=== PATIENT | male | born 1940 | race Caucasian/White ===

== ENCOUNTER 2018-12-30 21:40 | Emergency (ER) | payer MEDICARE, BC ==
[2018-12-30] MEDS ORDERED: NS 0.9% 1000 ML** 1,000 ML IV ONE (22:11)
[2018-12-30] MEDS ORDERED: Morphine 4 MG/ML VIAL (1 ml) 4 MG/ML VIAL IV ONE (22:11)
[2018-12-30 22:25] LABS: Urine Appearance Clear; Urine Bacteria Absent (Absent); Urine Bilirubin Negative (Negative); Urine Blood Negative (Negative); Urine Color Yellow; Urine Glucose Negative (Negative); Urine Ketones 1+ (Negative); Urine Nitrite Negative (Negative); Urine Protein 1+(30 mg/dL) (Negative); Urine Red Blood Cell Absent (Absent); Urine Specific Gravity 1.013 (1.010-1.030); Urine Urobilinogen Negative (Negative); Urine White Blood Cell Trace(0-5/hpf) (Absent)
--- NOTE | 2018-12-30 22:44 | ED ---
GI/ HPI - HPI Summary HPI Summary: 78 year old male presents with abdominal pain for the past couple hours. He states that it started after eating. He states he had chips and it made it worst. He's had this 2 weeks ago. He states it resolved on its own. States this has not resolving. He admits to some nausea vomiting. admits to some urgency urinary symptoms. He denies any diarrhea. He admits to constipation. No fevers. No previous belly surgeries. Has history of high blood pressure. - History of Current Complaint Chief Complaint: EDAbdPain Time Seen by Provider: 12/30/18 22:02 Stated Complaint: RT UPPER QUADRANT PAIN PER EMS Pain Intensity: 10 - Allergy/Home Medications Allergies/Adverse Reactions: Allergies Allergy/AdvReac Type Severity Reaction Status Date / Time No Known Allergies Allergy Verified 12/30/18 22:01 PMH/Surg Hx/FS Hx/Imm Hx Endocrine/Hematology History: Denies: Hx Anticoagulant Therapy Cardiovascular History: Reports: Hx Hypertension Infectious Disease History: No Infectious Disease History: Denies: Traveled Outside the [place] in Last 30 Days - Family History Known Family History: Positive: Non-Contributory - Social History Alcohol Use: Rare Substance Use Type: Reports: None Smoking Status (MU): Never Smoked Tobacco Review of Systems Negative: Fever Negative: Chest Pain Negative: Shortness Of Breath Positive: Abdominal Pain, Nausea. Negative: Vomiting, Diarrhea All Other Systems Reviewed And Are Negative: Yes Physical Exam Triage Information Reviewed: Yes Vital Signs On Initial Exam: Initial Vitals Temp Pulse Resp BP Pulse Ox 97.7 F 62 16 175/91 96 12/30/18 21:50 12/30/18 21:50 12/30/18 21:50 12/30/18 21:50 12/30/18 21:50 Vital Signs Reviewed: Yes Appearance: Positive: Well-Appearing Skin: Positive: Warm, Dry Head/Face: Positive: Normal Head/Face Inspection Eyes: Positive: Normal, EOMI, LUIS, Conjunctiva Clear Respiratory/Lung Sounds: Positive: Clear to Auscultation, Breath Sounds Present Cardiovascular: Positive: Normal, RRR Abdomen Description: Positive: Soft, Other: - tenderness in RUQ pain Bowel Sounds: Positive: Present Musculoskeletal: Positive: Normal Neurological: Positive: Normal Psychiatric: Positive: Normal Diagnostics - Vital Signs Vital Signs Temp Pulse Resp BP Pulse Ox 12/30/18 22:27 16 12/30/18 22:01 63 95 12/30/18 22:00 64 175/91 96 12/30/18 21:59 62 90 12/30/18 21:50 97.7 F 62 16 175/91 96 - Laboratory Lab Results: Lab Results 12/30/18 Range/Units 21:55 Urine Color Yellow Urine Appearance Clear Urine pH 7.0 (5-9) Ur Specific [place] 1.013 (1.010-1.030) Urine Protein 1+(30 mg/dl) A (Negative) Urine Ketones 1+ A (Negative) Urine Blood Negative (Negative) Urine Nitrate Negative (Negative) Urine Bilirubin Negative (Negative) Urine Urobilinogen Negative (Negative) Ur Leukocyte Esterase Negative (Negative) Urine WBC (Auto) Trace(0-5/hpf) (Absent) Urine RBC (Auto) Absent (Absent) Urine Bacteria Absent (Absent) Hyaline Casts Present A (Absent) Urine Glucose Negative (Negative) Urine Ascorbic Acid * A (Negative) Result Diagrams: 12/30/18 22:48 12/30/18 22:48 Lab Statement: Any lab studies that have been ordered have been reviewed, and results considered in the medical decision making process. - Ultrasound No standard instances Ultrasound Interpretation Completed By: Radiologist Summary of Ultrasound Findings: IMPRESSION: There is gallbladder sludge but no visible calculi no abnormal gallbladder wall thickening and negative sonographic Smith's sign and therefore not specific for acute cholecystitis. Re-Evaluation - Re-Evaluation First Eval Re-Evaluation Time: 01:31 Change: Improved Comment: feeling better GIGU Course/Dx - Course Course Of Treatment: 78 year old male presents with abdominal pain for the past couple hours. He states that it started after eating. He states he had chips and it made it worst. He's had this 2 weeks ago. He states it resolved on its own. States this has not resolving. He admits to some nausea vomiting. admits to some urgency urinary symptoms. He denies any diarrhea. He admits to constipation. No fevers. No previous belly surgeries. Has history of high blood pressure. On exam tenderness in the right upper quadrant. wbc normal. urine shows no uti. gallbladder u/s shows sludge. lfts normal. will have patient follow up with surgery. patient understand and agrees with plan. - Diagnoses Differential Diagnoses - Male: Gall Bladder Disease, Gastroenteritis (Viral), Urinary Tract Infection Provider Diagnoses: Abdominal pain Discharge ED - Sign-Out/Discharge Documenting (check all that apply): Patient Departure Patient Received Moderate/Deep Sedation with Procedure: No - Discharge Plan Condition: Good Disposition: HOME Patient Education Materials: Biliary Colic (ED) Referrals: No Primary Care Phys,NOPCP [Primary Care Provider] - Additional Instructions: follow up with surgery avoid fatty foods Return to ED if develop any new or worsening symptoms - Billing Disposition and Condition Condition: GOOD Disposition: Home
[2018-12-30 22:54] LABS: ABS Lymphocytes 0.7 10^3/ul (1.0-4.8); ABS Monocytes 0.6 10^3/ul (0-0.8); Eosinophil % 0.3 %; Hematocrit 43 % (42-52); Hemoglobin 14.7 g/dL (14.0-18.0); Lymphocyte % 8.5 %; Mean Corpuscular HGB Conc 35 g/dL (31-36); Mean Corpuscular Hemoglobin 32 pg (27-31); Mean Corpuscular Volume 94 fL (80-94); Mean Platelet Volume 7.8 fL (7.4-10.4); Platelet Count 233 10^3/uL (150-450); Red Blood Count 4.56 10^6 /uL (4.18-5.48); Red Cell Distribution Width 15 % (10-15); White Blood Count 8.4 10^3/uL (3.5-10.8)
[2018-12-30 23:13] LABS: Albumin 4.4 g/dL (3.2-5.2); Albumin/Globulin Ratio 1.6 (1-3); BUN/Creatinine Ratio 10.4 (8-20); C Reactive Protein 3.3 mg/L (<8.01); Calcium 8.7 mg/dL (8.6-10.3); EGFR African American 92.1 (>60); EGFR Non-African American 76.2 (>60); Globulin 2.8 g/dL (2-4); Potassium 3.7 mmol/L (3.5-5.0); Total Bilirubin 0.8 mg/dL (0.2-1.0); Total Protein 7.2 g/dL (6.4-8.9)
[2018-12-31] MEDS: NS 0.9% 1000 ML** 1,000 ML IV ONE ×2 (00:22→01:14)
[2018-12-31 01:44] VITALS: BP 160/90
== END 2018-12-31 02:02 | disposition home or self-care (01) ==
LOC: ED 21:40
DX: R10.9 Unspecified abdominal pain (principal); I10 Essential (primary) hypertension
CPT/HCPCS: 36415; 76705; 80053; 81003; 81015; 83605; 83690; 85025; 86140; 87086; 96361; 96374; 99284; J2270

== ENCOUNTER 2019-01-01 04:12 | Inpatient (IN) | payer MEDICARE, BC ==
[2019-01-01] MEDS ORDERED: Ondansetron INJ* 2 MG/ML VIAL IV ONE (04:41)
[2019-01-01] MEDS ORDERED: Morphine 4 MG/ML VIAL (1 ml) 4 MG/ML VIAL IV ONE (04:41)
--- NOTE | 2019-01-01 04:46 | ED ---
Abdominal Pain/Male - HPI Summary HPI Summary: This patient is a 78 year old male presenting to [facility] with a chief complaint of RUQ pain. He was seen here yesterday for similar symptoms. He states he felt good when he went home yesterday where his US revealed gallbladder sludge and was able to eat a little bit after going home. The pain then returned tonight. He reports mild nausea. He rates his pain 7/10 in severity. - History of Current Complaint Chief Complaint: EDAbdPain Stated Complaint: GALLBLADDER PROBLEM PER PT Time Seen by Provider: 01/01/19 04:29 Hx Obtained From: Patient Onset/Duration: Lasting Days Pain Intensity: 7 Pain Scale Used: 0-10 Numeric Location: Discrete At: RUQ - Allergies/Home Medications Allergies/Adverse Reactions: Allergies Allergy/AdvReac Type Severity Reaction Status Date / Time No Known Allergies Allergy Verified 01/05/19 19:20 Home Medications: Home Medications Alfuzosin HCl [Alfuzosin HCl ER] 10 mg PO DAILY 01/01/19 [History Confirmed ] Aspirin 81 mg PO DAILY 01/01/19 [History Confirmed 01/01/19] Calcium Citrate TAB* [Citracal TAB*] 600 mg PO BID 01/01/19 [History Confirmed 01/01/19] Carbidopa/Levodopa [Carbidopa-Levodopa 25-100 Tab] 1 tab PO TID 01/01/19 [ History Confirmed 01/01/19] Docusate CAP* [Colace Cap*] 200 mg PO BID 01/01/19 [History Confirmed 01/01/19] Finasteride TAB* [Proscar TAB*] 5 mg PO DAILY 01/01/19 [History Confirmed ] Losartan Potassium [Cozaar] 50 mg PO DAILY 01/01/19 [History Confirmed 01/01/19] Multivitamins/Minerals TAB* [Theragran/minerals TAB*] 1 tab PO BID 01/01/19 [ History Confirmed 01/01/19] [place]-3 Fatty Acids (Nf) [Fish Oil (NF)] 1,000 mg PO BID 01/01/19 [History Confirmed 01/01/19] Omeprazole 40 mg PO DAILY 01/01/19 [History Confirmed 01/01/19] Polyethylene Glycol 3350* [Miralax*] 1 dose PO DAILY 01/01/19 [History Confirmed 01/01/19] Trospium Chloride [Trospium Chloride ER] 60 mg PO BID 01/01/19 [History Confirmed 01/01/19] hydroCHLOROthiazide [Hydrochlorothiazide] 12.5 mg PO DAILY 01/01/19 [History Confirmed 01/01/19] PMH/Surg Hx/FS Hx/Imm Hx Endocrine/Hematology History: Denies: Hx Anticoagulant Therapy Cardiovascular History: Reports: Hx Hypertension Infectious Disease History: No Infectious Disease History: Denies: Traveled Outside the [place] in Last 30 Days - Family History Known Family History: Negative: Cardiac Disease - Social History Alcohol Use: Rare Substance Use Type: Reports: None Smoking Status (MU): Never Smoked Tobacco Review of Systems Negative: Fever Positive: Abdominal Pain, Nausea All Other Systems Reviewed And Are Negative: Yes Physical Exam - Summary Physical Exam Summary: Appearance: Well-appearing, Well-nourished, lying in bed comfortably Skin: Warm, dry, no obvious rash Eyes: sclera anicteric, no conjunctival pallor ENT: mucous membranes moist, pharynx appears normal Neck: Supple, nontender Respiratory: Clear to auscultation, no signs of respiratory distress Cardiovascular: Normal S1, S2. No murmurs. Normal distal pulses in tibial and radial bilaterally. Abdomen: Soft, nontender, normal active bowel sounds present Musculoskeletal: Normal, Strength/ROM Intact Neurological: A&Ox3, awake and alert, mentation is normal, speech is fluent and appropriate Psychiatric: affect is normal, does not appear anxious or depressed Triage Information Reviewed: Yes Vital Signs On Initial Exam: Initial Vitals Temp Pulse Resp BP Pulse Ox 100.1 F 104 16 152/84 97 01/01/19 04:14 01/01/19 04:14 01/01/19 04:14 01/01/19 04:14 01/01/19 04:14 Vital Signs Reviewed: Yes Procedures - Sedation Patient Received Moderate/Deep Sedation with Procedure: No Diagnostics - Vital Signs Vital Signs Temp Pulse Resp BP Pulse Ox 01/01/19 04:14 100.1 F 104 16 152/84 97 - Laboratory Result Diagrams: 01/03/19 11:12 01/03/19 05:29 Lab Statement: Any lab studies that have been ordered have been reviewed, and results considered in the medical decision making process. Abdominal Pain Male Course/Dx - Course Course Of Treatment: This patient is a 78 year old male presenting to [facility] with a chief complaint of RUQ pain. Dr. Rodríguez, Surgery, advised to get a CT Abd/Pel. This patient will be signed out to Dr. Wolfe at shift change [address] abd/pel and disposition. - Diagnoses Provider Diagnoses: Acute cholecystitis - Provider Notifications Discussed Care Of Patient With: Olvin Rodríguez - Surgery Time Discussed With Above Provider: 06:49 - Advised to do a CT scan. Discharge ED - Sign-Out/Discharge Documenting (check all that apply): Sign-Out Patient Signing out patient TO: Abraham Wolfe - Shift change 0700 - Discharge Plan Condition: Stable Disposition: ADMITTED TO [facility] - Billing Disposition and Condition Condition: STABLE Disposition: Admitted to [facility] - Attestation Statements Document Initiated by Shorty: Yes Documenting Scribe: Ezekiel Luke Provider For Whom Shorty is Documenting (Include Credential): Nicola Ritter MD Scribe Attestation: Ezekiel Holland scribed for Nicola Ritter MD on 01/07/19 at 0422. Scribe Documentation Reviewed: Yes Provider Attestation: The documentation as recorded by the Ezekiel calloway accurately reflects the service I personally performed and the decisions made by me, Nicola Ritter MD Status of Scribe Document: Viewed
[2019-01-01 05:08] LABS: ABS Lymphocytes 0.5 10^3/ul (1.0-4.8); ABS Neutrophils 9.2 10^3/ul (1.5-7.7); Eosinophil % 0.1 %; Hematocrit 40 % (42-52); Hemoglobin 13.7 g/dL (14.0-18.0); Lymphocyte % 4.4 %; Mean Corpuscular HGB Conc 35 g/dL (31-36); Mean Corpuscular Hemoglobin 32 pg (27-31); Mean Corpuscular Volume 93 fL (80-94); Mean Platelet Volume 7.8 fL (7.4-10.4); Platelet Count 195 10^3/uL (150-450); Red Blood Count 4.24 10^6 /uL (4.18-5.48); Red Cell Distribution Width 14 % (10-15); White Blood Count 10.7 10^3/uL (3.5-10.8)
[2019-01-01 05:39] LABS: Albumin/Globulin Ratio 1.5 (1-3); BUN/Creatinine Ratio 14.9 (8-20); C Reactive Protein 154.56 mg/L (<8.01); Calcium 8.7 mg/dL (8.6-10.3); EGFR African American 86.9 (>60); EGFR Non-African American 71.8 (>60); Globulin 2.7 g/dL (2-4); Potassium 3.5 mmol/L (3.5-5.0); Total Bilirubin 1.3 mg/dL (0.2-1.0); Total Protein 6.7 g/dL (6.4-8.9)
--- NOTE | 2019-01-01 07:14 | ED ---
Progress - Progress Note Progress Note: This pt was signed out from Dr. Ritter to Dr. Goddard at shift change on 01/01/[address] abdomen/pelvis. CT abdomen/pelvis, as read by radiologist IMPRESSION: 1. Gallbladder wall thickening with pericholecystic inflammatory change concerning for acute cholecystitis in the correct clinical setting. 2. Diverticulosis. 3. Enlarged prostate. Dr. Goddard has reviewed this report. Course/Dx - Course Course Of Treatment: After CT scan returned with a diagnosis of acute cholecystitis with biliary duct dilatation, I spoke with Dr. Riojas. She still requested that I consult Dr. Rodríguez. I spoke with Dr. Rodríguez who recommended admission to the hospitalist and he would consult. - Diagnoses Provider Diagnoses: Acute cholecystitis - Provider Notifications Discussed Care Of Patient With: Lauri Carias - hospitalist Time Discussed With Above Provider: 09:26 Instructed by Provider To: Other - Discussed case with Dr. Carias, hospitalist, who will evaluate pt. Discharge ED - Sign-Out/Discharge Documenting (check all that apply): Patient Departure - [place] [facility] [place]-Out Receiving patient FROM: Nicola Ritter Patient Received Moderate/Deep Sedation with Procedure: No - Discharge Plan Condition: Stable Disposition: ADMITTED TO [facility] - Billing Disposition and Condition Condition: STABLE Disposition: Admitted to [facility] - Attestation Statements Document Initiated by Shorty: Yes Documenting Scribe: Heydi Harris Provider For Whom Shorty is Documenting (Include Credential): Nicola Goddard MD Scribrylie Attestation: I, Heydi Harris, scribed for Nicola Goddard MD on 01/01/19 at 1523. Scribe Documentation Reviewed: Yes Provider Attestation: The documentation as recorded by the Heydi calloway accurately reflects the service I personally performed and the decisions made by me, Nicola Goddard MD Status of Scribe Document: Viewed
[2019-01-01 07:50] LABS: Urine Appearance Cloudy; Urine Bacteria Absent (Absent); Urine Bilirubin Negative (Negative); Urine Blood Negative (Negative); Urine Color Amber; Urine Glucose Negative (Negative); Urine Ketones 1+ (Negative); Urine Nitrite Negative (Negative); Urine Protein 1+(30 mg/dL) (Negative); Urine Red Blood Cell Absent (Absent); Urine Specific Gravity 1.021 (1.010-1.030); Urine Urobilinogen Negative (Negative); Urine White Blood Cell Trace(0-5/hpf) (Absent)
[2019-01-01] MEDS ORDERED: Iohexol 300* (CONTRAST) 10 ML SDV IV ONE (08:30)
[2019-01-01] MEDS ORDERED: Piperacillin/Tazobac ADVAN(*) 3.375 GM in NS 0.9% 100 ML* 100 ML IVPB ONE ×2 (09:54→11:22)
[2019-01-01] MEDS ORDERED: Zosyn per Pharmacy* NOTE FOLLOW UP SCH ×2 (10:00→12:00)
[2019-01-01] MEDS ORDERED: NS 0.9% IV ONE (10:15)
[2019-01-01 10:19] LABS: Hematocrit 41 % (42-52); Hemoglobin 14.1 g/dL (14.0-18.0); Mean Corpuscular HGB Conc 35 g/dL (31-36); Mean Corpuscular Hemoglobin 32 pg (27-31); Mean Corpuscular Volume 93 fL (80-94); Mean Platelet Volume 7.8 fL (7.4-10.4); Platelet Count 192 10^3/uL (150-450); Red Blood Count 4.39 10^6 /uL (4.18-5.48); Red Cell Distribution Width 15 % (10-15); White Blood Count 14.3 10^3/uL (3.5-10.8)
[2019-01-01 10:35] LABS: Albumin 4.1 g/dL (3.2-5.2); Albumin/Globulin Ratio 1.5 (1-3); Globulin 2.8 g/dL (2-4); Total Bilirubin 1.3 mg/dL (0.2-1.0); Total Protein 6.9 g/dL (6.4-8.9)
[2019-01-01 11:07] LABS: ABS Lymphocytes 1.1 10^3/ul (1.0-4.8); ABS Monocytes 1.7 10^3/ul (0-0.8); ABS Neutrophils 11.4 10^3/ul (1.5-7.7); Lymphocyte % 7.8 %
[2019-01-01] MEDS ORDERED: Ondansetron INJ* 2 MG/ML VIAL IV PRN (11:22)
[2019-01-01] MEDS ORDERED: Morphine INJ* 2 MG/ML 1 ML SYRINGE (TWO MG - NEW SYRINGE VERSION) IV PRN (11:22)
[2019-01-01] MEDS: LEVODOPA PO SCH ×3 (11:49→22:56)
[2019-01-01] MEDS: CARBIDOPA PO SCH ×3 (11:49→22:56)
[2019-01-01] MEDS ORDERED: Carbidopa/Levodopa ODT(NF) TAB.ODT 25/100 PO ONE (12:00)
[2019-01-01 12:22] LABS: INR 1.3 (0.82-1.09)
[2019-01-01] MEDS: Acetaminophen TAB* 325 MG PO PRN ×2 (12:32→15:59)
[2019-01-01] MEDS ORDERED: Morphine INJ* 4 MG/ML 1 ML SYRINGE (NEW SYRINGE VERSION) IV PRN (13:00)
--- NOTE | 2019-01-01 13:17 | CONS ---
CONSULTATION REPORT: DATE OF CONSULT: 01/01/19 SERVICE: General Surgery. ATTENDING SURGEON: Dr. Jamee Riojas. REASON FOR CONSULTATION: Right upper quadrant abdominal pain. HISTORY OF PRESENT ILLNESS: Mr. Dodd is a very pleasant 78-year-old gentleman with a history of Parkinson's disease, who presented to the emergency room yesterday evening with complaints of right upper quadrant abdominal pain. Of note, he had been in the emergency room 1 day prior with a similar complaint of right upper quadrant abdominal pain; however, his imaging with the right upper quadrant ultrasound and his labs were all negative and he was therefore sent home after being administered morphine. He presented yesterday evening again because he said that the pain had returned and was 7/10. He has also had some nausea since his earlier presentation and he has not been able to tolerate much p.o. He also said that because he had a subjective fever at home, this is another reason why he presented back to the emergency room. The patient says that his first episode of right upper quadrant abdominal pain was several months ago and the second one was just about 2 days ago and then this is his third presentation. Prior to this, he has had no known history of cholelithiasis. PAST MEDICAL HISTORY: Hypertension, Parkinson's disease. He also had a history of overactive bladder. PAST SURGICAL HISTORY: No history of abdominal surgery. MEDICATIONS: 1. Trospium chloride 60 mg p.o. b.i.d. 2. MiraLAX 1 dose p.o. daily. 3. [place]-3 fatty acid 1000 mg p.o. b.i.d. 4. Losartan 50 mg p.o. daily. 5. Omeprazole 40 mg p.o. daily. 6. Finasteride 5 mg p.o. daily. 7. Docusate 200 mg p.o. b.i.d. 8. Hydrochlorothiazide 12.5 mg p.o. daily. 9. Alfuzosin 10 mg p.o. daily. 10. Carbidopa/levodopa 1 tab p.o. t.i.d. 11. Multivitamins. 12. Aspirin 81 mg p.o. daily. 13. Calcium citrate 600 mg p.o. b.i.d. ALLERGIES: No known drug allergies. FAMILY HISTORY: No history of cardiac disease. SOCIAL HISTORY: The patient lives in [place] with his . He is retired. He is a nonsmoker. REVIEW OF SYSTEMS: Negative except for abdominal pain, nausea, and fever. PHYSICAL EXAM: Vital Signs: Temperature is 101.6, pulse is 93, respiratory rate is 18, O2 sat is 95% O2 on room air, blood pressure is 129/76. General: Elderly well-appearing man, lying comfortably in bed, in no apparent distress, conversing pleasantly and easily. HEENT is normocephalic, atraumatic. Cardiovascular is regular rate and rhythm. Respiratory is clear to auscultation bilaterally. Abdomen is soft, tender in the right upper quadrant. No guarding. No abdominal distention. Extremities: No edema. DIAGNOSTIC STUDIES/LAB DATA: White blood cell count was 10.7, on recheck was 14.3; hemoglobin 13.7; hematocrit is 40; platelets of 195. Sodium is 134, potassium is 3.5, chloride is 99, BUN 15, creatinine is 1.01, glucose is 127. Total bilirubin is 1.3, AST is 19, ALT is 14, alkaline phosphatase is 50. C- reactive protein is 154, lipase is 17. Imaging: CT abdomen and pelvis shows no intrahepatic or extrahepatic biliary dilatation. There is mild gallbladder wall thickening. There is stranding with pericholecystic fat. The pancreas is normal without mass or ductal dilatation. Impression is gallbladder wall thickening with pericholecystic inflammatory changes concerning for acute cholecystitis, diverticulosis and enlarged prostate. Gallbladder ultrasound- shows no biliary dilatation, bile duct is 5 mm, gallbladder wall thickening. There is positive sonographic Smith's sign, small amount of pericholecystic fluid. The suspected stone noted on CT is not visualized on this submitted images. ASSESSMENT AND PLAN: Mr. Dodd is a 78-year-old gentleman with a history of Parkinson's disease, who presents with right upper quadrant abdominal pain. He has no evidence of clear cholelithiasis, but he does have some sludge, pericholecystic fluid and gallbladder wall thickening present on his right upper quadrant ultrasound and a WBC up to 14, all consistent with acute cholecystitis. However, his bilirubin remains elevated at 1.3. I have discussed with the patient that there is a possibility that he may have some element of choledocholithiasis. He will therefore be admitted, made n.p.o., placed on IV antibiotics. Tomorrow, we will trend his bilirubin to see if it is rising. If it remains stable or minimally elevated, then we will proceed to the OR tomorrow for laparoscopic, possible open cholecystectomy. I discussed the surgery and the risks, benefits and alternatives of the procedure. He understands the risks include, but are not limited to bleeding, infection, injury to nearby structures, bile duct leak, including the possibility of injury to common bile duct, intestines and so forth, acute pancreatitis post op. There is also a risk of perioperative systemic complications. He understands if his bilirubins continue to rise he may need an ERCP post operatively. He understands all these things and wishes to proceed. I have discussed this with Wisam Ramirez NP who is admitting the patient to the hospitalist service. [id number]/[facility] #: [id number] RADHA
[2019-01-01] MEDS: NS 0.9% 1000 ML** 1,000 ML IV SCH (13:25)
--- NOTE | 2019-01-01 15:37 | HP ---
CC: Dr. Toma Garcia * HISTORY AND PHYSICAL: DATE OF ADMISSION: 01/01/19 CONSULTING SURGEON: Dr. Riojas. ATTENDING PHYSICIAN WHILE IN THE HOSPITAL: Dr. Carias * (report dictated by Wisam Ramirez NP). PRIMARY CARE PROVIDER: Dr. Toma Garcia at [place], [place]. Number there is [phone], please call this number to obtain a fax number and fax the copy of this history and physical to the primary care provider. CHIEF COMPLAINT: Abdominal pain. HISTORY OF PRESENTING ILLNESS: Mr. Dodd is a 78-year-old male patient who carries a history of Parkinson's disease, hypertension, GERD, overactive bladder , BPH who comes into the ER stating that 2 weeks ago he noticed after eating a meal, cannot remember what exactly he ate, but he had discomfort in his right upper quadrant and described as a sharp, stabbing, pressure. It lasted for about 4 hours, that happened about a couple of hours after eating, with no other associated symptoms, but eventually it went away. Unfortunately 2 days ago, he was having onion rings, he ate the onion rings, about a couple of hours later, he developed severe intense pain in the right upper quadrant that was worse than before. He came into our ER, he was treated, the pain resolved, and he was discharged. Unfortunately, he had salad last night with oil, he woke up in the middle of night, last night, he felt feverish, he was having that pain that just really was not going away again. Because of this, he came back into the ER. He does feel nauseous, but he has not vomited. He did admit to having a fever and he was noting that the pain was just getting worse and worse. It is now about a 7/10 and he is able to tolerate this. He says he has been dieting and he has lost weight. There was concern because the symptoms just were not getting any better and he came into the ER. In the ER today, he was noted to be febrile, his white count was actually a little bit elevated, and CT imaging and ultrasound is concerning for acute cholecystitis. Surgery was consulted as was the hospitalist service. We were asked to evaluate for admission. He denies any active chest pain. Denies shortness of breath at this point. Because of the sepsis and acute cholecystitis, we were asked to evaluate for admission. PAST MEDICAL HISTORY: Significant for: 1. Parkinson's disease. 2. Hypertension. 3. GERD. 4. BPH. PAST SURGICAL HISTORY: 1. He has had a right total shoulder arthroplasty. 2. Parathyroid surgery. 3. Kidney stone. HOME MEDICATIONS: Include: 1. Carbidopa/levodopa 1 tablet p.o. t.i.d. 2. Calcium citrate 600 mg p.o. b.i.d. 3. Hydrochlorothiazide 12.5 mg daily. 4. [place]-3 fatty acid 1000 mg p.o. daily. 5. Alfuzosin 10 mg daily. 6. Trospium 60 mg p.o. b.i.d. 7. MiraLAX 1 dose p.o. daily. 8. Multivitamin 1 tablet daily. 9. Cozaar 50 mg daily. 10. Aspirin 81 mg daily. 11. Prilosec 40 mg daily. 12. Proscar 5 mg daily. 13. Colace 200 mg p.o. b.i.d. ALLERGIES: Include no known drug allergies. FAMILY HISTORY: His mother at the age of 90. Father has a history of lung cancer and kidney stone disease as well. SOCIAL HISTORY: He does not smoke. He does not drink. He is retired. His surrogate decision maker is his . REVIEW OF SYSTEMS: There is a documented fever. He does admit to a significant weight change as he has been dieting. He denies having any double vision. There is no ear discharge. He denied having any rhinorrhea. There is no sore throat. No thyroid enlargement. Denied having any chest pain. There is no orthopnea. There is no nocturnal dyspnea. He did admit to abdominal pain. He does admit to nausea but no vomiting. No dysuria. He does admit to urgency and frequency of urination, long-standing issues. Denies having any lightheadedness, loss of consciousness. No pruritus and no skin ulcerations. Review of 14 systems completed, all others were negative. PHYSICAL EXAMINATION GENERAL: At this time, Mr. Dodd is a 78-year-old male patient; he is sitting in the ED stretcher. He does not appear to be in any acute distress. VITAL SIGNS: Blood pressure 129/76, pulse of 93, respirations 18, O2 sat 95% on room air, temperature 101.6. HEENT: Head is atraumatic, normocephalic. Eyes: EOMs are intact. Sclerae are anicteric and not pale. Throat: Oral mucosa appears to be dry. No oropharyngeal erythema. NECK: Supple. LUNGS: Clear to auscultation bilaterally. No wheezes, rales, or rhonchi. HEART: Sounds S1, S2. He had a regular rate and rhythm. No murmurs, rubs, or gallops. ABDOMEN: Soft. There was tenderness in the right upper quadrant. Bowel sounds were present in all 4 quadrants. It is mildly distended. EXTREMITIES: Pulses were 2+ throughout. He had no peripheral edema. He is moving all 4 extremities with 5/5 strength. He does have cogwheeling. In addition to this, he also does have a resting tremor noted, in fact in the right side worse than the left. NEUROLOGICAL: He is awake, he is alert, he is oriented x3. His tongue is midline. Vasc Tech were equal. Cranial nerves II through XII were intact. He had no gross focal neurological deficits at this point. SKIN: Intact. LABORATORY DATA/DIAGNOSTIC STUDIES: Today revealed WBC initially at 10.7, it is now 14.3; hemoglobin 14.1, hematocrit of 41, platelet count 192. His sodium 134, potassium 3.5, chloride 99, bicarb 29, BUN 15, creatinine 1.01, glucose 127. Lactate 0.9, repeat 1. Total bili 1.3. CRP 154. AST 19, ALT 18, alk phos 54, albumin 4.1, lipase normal. Urine showed 1+ protein, 1+ ketones. He did have a gallbladder ultrasound obtained today, which showed no biliary dilatation, gallbladder wall thickening, pericholecystic fluid and a sonographic Smith sign. We find him to meet the sonographic criteria for acute cholecystitis. He did have a CT of the abdomen and pelvis, which revealed impression: Gallbladder wall thickening with prior cholecystic inflammatory change concerning for acute cholecystitis in the current clinical setting, diverticulosis, enlarged prostate. Old medical records were reviewed from his previous ER visits. ASSESSMENT AND PLAN: Mr. Dodd is a 78-year-old male patient coming into the emergency department today with complaints of abdominal discomfort, on evaluation found to have acute cholecystitis with sepsis. He will be admitted under inpatient status for: 1. Acute cholecystitis with sepsis. Again, the patient was evaluated by Dr. Riojas in the ER today. It is felt that she would like to trend his labs and then proceed with surgery tomorrow. For the time being, he did receive 30 cc/kg bolus, serial lactates have been checked, and Zosyn has been started. I am going to continue fluids, continue the Zosyn, monitor him closely for worsening signs of sepsis, but at this point, we will continue to monitor. He does appear to have sepsis. I do not see any evidence of organ dysfunction at this point. We will continue to follow him and he will be n.p.o. except medications and then n.p.o. after midnight. 2. Parkinson's disease. I did order sublingual carbidopa/levodopa for the patient so that we can continue this. 3. Hypertension in the setting of sepsis. I am going to hold his medication. 4. Gastroesophageal reflux disease. He is n.p.o. at this point. We will get him restarted on his PPI as soon as possible. 5. History of benign prostatic hypertrophy. We are going to hold medications in the setting of acute illness. We will restart when able. 6. DVT prophylaxis. He is high risk. I have placed him on heparin subcu. 7. Code status. Full code. 8. Fluid, electrolytes, and nutrition. He is n.p.o. after midnight. He is n.p.o. except medications and ice chips at this point. We will replace electrolytes accordingly and start him on a diet when able. TIME SPENT: Time spent on the admission was 60 minutes, greater than half of the time was spent [id number] with the patient obtaining my history and physical, other half time was spent implementing plan of care. I did discuss the plan of care with my attending, Dr. Carias. WISAM RAMIREZ NP [id number]/[facility] #: [id number] RADHA
[2019-01-01] MEDS: Heparin VIAL(*) 5000 UNITS/ML VIAL (FIVE THOUSAND) SUBCUT SCH ×2 (15:49→22:54)
[2019-01-01] MEDS: ZOSYN 3.375 GM Q8H per EXTENDED INFUSION IVPB SCH ×4 (15:51→22:56)
--- NOTE | 2019-01-01 16:02 | CONS ---
GASTROENTEROLOGY CONSULT: DATE: 01/01/19 CONSULTING PHYSICIAN: Nicola Goddard MD, in Emergency Room. REASON FOR CONSULTATION: Right upper quadrant pain and elevated white count and a change in bilirubin from 0.8 to 1.3. 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 It was transient. He has a past history of osteopenia, overactive bladder, and parkinsonism. He has been traveling, seeing friends, was planning on going to a [place] center for few days near here. Two weeks ago, he developed attack of upper abdominal pain. It resolved on its own briefly. He then had another attack 2 days ago and came to the emergency room. After a single pain shot, he seemed better and was released home. Yesterday, he was able to eat some solid food, but shortly after dinner which was a salad, he developed more severe right upper quadrant pain and returned to the emergency room. On arrival, his temperature was 100.1, blood pressure 152/84. He was markedly tender in the right upper quadrant. Ultrasound and CT scan (Radiology cocktail server not responding) are said to show a thickened gallbladder wall and some stranding and no gross abnormality of the common duct. His LFTs show normal transaminases and alkaline phosphatase. His C-reactive protein which was 3.3 has gone up to 154. He has been admitted, placed on piperacillin and prophylactic heparin in addition to his usual parkinsonism med. PAST MEDICAL HISTORY: 1. Parkinsonism. 2. Overactive bladder. 3. Osteopenia with parathyroid abnormality. MEDICATIONS AT HOME: 1. Carbidopa/levodopa. 2. Hydrochlorothiazide. 3. Polyethylene glycol p.r.n. 4. Omeprazole 40. 5. Finasteride. SOCIAL HISTORY: He currently lives in [place]. He was travelling independently , coming from the [place] when he took ill while being here. His is on her way from [place]. REVIEW OF SYSTEMS: No history of syncope, seizure, [place], heart failure, arrhythmias, TB, hemoptysis, jaundice, psoriasis, or internal bleeding. PHYSICAL EXAM: He is a pleasant older man, in no distress with somewhat flat affect. HEENT exam shows normal icterus. Mucous membranes are normal. He has no adenopathy. His lungs are clear and heart sounds are normal. He is comfortable lying flat. The abdomen has diminished bowel sounds, though some are present. The abdomen is soft, is markedly tender in the right upper quadrant and has some referred tenderness on the suprapubic and right lower quadrant area. Rectal: Deferred and not indicated. Extremities show no edema. Neurologic is nonfocal other than the inexpressive countenance. DIAGNOSTIC STUDIES/LAB DATA: Hemoglobin 13.7, hematocrit 40, MCV 93, platelets 195. White count initially 10.7 increasing to 14.3. Bilirubin 1.3, AST/ALT 19/ 18, and alkaline phosphatase 54 and albumin 4.1. IMPRESSION: Acute cholecystitis. Local spread of inflammation and/or metabolic effects from early sepsis likely explained the bilirubin rising without alteration in the other LFTs. At this time, the odds that a common duct stone is contributing to his clinical picture seem extremely low. MRCP is not indicated. [id number]/[facility] #: [id number] MTDD
[2019-01-02] MEDS: NS 0.9% 1000 ML** 1,000 ML IV SCH (01:00)
[2019-01-02] MEDS: Heparin VIAL(*) 5000 UNITS/ML VIAL (FIVE THOUSAND) SUBCUT SCH ×3 (04:12→22:36)
[2019-01-02 04:48] LABS: ABS Eosinophils 0.1 10^3/ul (0-0.6); ABS Monocytes 1.5 10^3/ul (0-0.8); ABS Neutrophils 9.7 10^3/ul (1.5-7.7); Eosinophil % 0.4 %; Hematocrit 37 % (42-52); Hemoglobin 12.8 g/dL (14.0-18.0); Mean Corpuscular HGB Conc 35 g/dL (31-36); Mean Corpuscular Hemoglobin 33 pg (27-31); Mean Corpuscular Volume 94 fL (80-94); Mean Platelet Volume 7.9 fL (7.4-10.4); Platelet Count 164 10^3/uL (150-450); Red Blood Count 3.93 10^6 /uL (4.18-5.48); Red Cell Distribution Width 15 % (10-15); White Blood Count 12.2 10^3/uL (3.5-10.8)
[2019-01-02 04:54] LABS: INR 1.33 (0.82-1.09)
[2019-01-02 05:10] LABS: Albumin 3.5 g/dL (3.2-5.2); Albumin/Globulin Ratio 1.3 (1-3); BUN/Creatinine Ratio 15.6 (8-20); Calcium 7.5 mg/dL (8.6-10.3); EGFR African American 79.6 (>60); EGFR Non-African American 65.8 (>60); Globulin 2.6 g/dL (2-4); Potassium 3.8 mmol/L (3.5-5.0); Total Bilirubin 1.9 mg/dL (0.2-1.0); Total Protein 6.1 g/dL (6.4-8.9)
[2019-01-02] MEDS ORDERED: Bisacodyl SUPP* 10 MG SUPP PR ONE (06:24)
[2019-01-02] MEDS: ZOSYN 3.375 GM Q8H per EXTENDED INFUSION IVPB SCH ×2 (07:21)
[2019-01-02] MEDS: LEVODOPA PO SCH ×3 (07:23→20:28)
[2019-01-02] MEDS: CARBIDOPA PO SCH ×3 (07:23→20:28)
--- NOTE | 2019-01-02 09:50 | PN ---
Progress Note - Progress Note Date of Service: 01/02/19 Note: Surgery Progress Note S: Patient doing well. No nausea. Still has 3-4/10 pain. O: Vital Signs - 24 hr 01/01/19 01/01/19 01/01/19 10:56 12:43 13:27 Temperature 101.6 F 102.0 F 100.4 F Pulse Rate 93 86 92 Respiratory 18 18 24 Rate Blood Pressure 129/76 108/67 116/52 (mmHg) O2 Sat by Pulse 95 93 95 Oximetry 01/01/19 01/01/19 01/01/19 13:37 16:35 16:53 Temperature 98.7 F Pulse Rate 80 Respiratory 24 17 16 Rate Blood Pressure 100/60 (mmHg) O2 Sat by Pulse 95 Oximetry 01/01/19 01/01/19 01/01/19 19:41 20:49 23:05 Temperature 97.5 F 98.0 F Pulse Rate 77 79 Respiratory 16 16 18 Rate Blood Pressure 116/57 112/64 (mmHg) O2 Sat by Pulse 96 95 Oximetry 01/02/19 01/02/19 01/02/19 03:26 07:40 08:00 Temperature 99.1 F Pulse Rate 89 Respiratory 18 18 18 Rate Blood Pressure 120/56 (mmHg) O2 Sat by Pulse 95 Oximetry 01/02/19 01/02/19 08:23 09:18 Temperature 100.4 F 99.0 F Pulse Rate 94 89 Respiratory 16 16 Rate Blood Pressure 120/64 134/80 (mmHg) O2 Sat by Pulse 94 95 Oximetry Laboratory Results - last 24 hr 01/01/19 01/01/19 01/01/19 10:12 10:12 10:12 WBC 14.3 H RBC 4.39 Hgb 14.1 Hct 41 L MCV 93 MCH 32 H MCHC 35 RDW 15 Plt Count 192 MPV 7.8 Neut % (Auto) 79.8 Lymph % (Auto) 7.8 [place] % (Auto) 12.1 Eos % (Auto) 0.0 Baso % (Auto) 0.3 Absolute Neuts (auto) 11.4 H Absolute Lymphs (auto) 1.1 Absolute Monos (auto) 1.7 H Absolute Eos (auto) 0.0 Absolute Basos (auto) 0.0 Absolute Nucleated RBC 0.0 Nucleated RBC % 0.0 INR (Anticoag Therapy) Sodium Potassium Chloride Carbon Dioxide Anion Gap BUN Creatinine Est GFR ( Amer) Est GFR (Non-Af Amer) BUN/Creatinine Ratio Glucose Lactic Acid 1.0 Calcium Total Bilirubin 1.30 H Direct Bilirubin 0.30 H Indirect Bilirubin 1.0 AST 19 ALT 18 Alkaline Phosphatase 54 Total Protein 6.9 Albumin 4.1 Globulin 2.8 Albumin/Globulin Ratio 1.5 01/01/19 01/02/19 01/02/19 12:00 04:41 04:41 WBC 12.2 H RBC 3.93 L Hgb 12.8 L Hct 37 L MCV 94 MCH 33 H MCHC 35 RDW 15 Plt Count 164 MPV 7.9 Neut % (Auto) 79.4 Lymph % (Auto) 8.0 [place] % (Auto) 12.0 Eos % (Auto) 0.4 Baso % (Auto) 0.2 Absolute Neuts (auto) 9.7 H Absolute Lymphs (auto) 1.0 Absolute Monos (auto) 1.5 H Absolute Eos (auto) 0.1 Absolute Basos (auto) 0.0 Absolute Nucleated RBC 0.0 Nucleated RBC % 0.0 INR (Anticoag Therapy) 1.30 H 1.33 H Sodium Potassium Chloride Carbon Dioxide Anion Gap BUN Creatinine Est GFR ( Amer) Est GFR (Non-Af Amer) BUN/Creatinine Ratio Glucose Lactic Acid Calcium Total Bilirubin Direct Bilirubin Indirect Bilirubin AST ALT Alkaline Phosphatase Total Protein Albumin Globulin Albumin/Globulin Ratio 01/02/19 04:41 WBC RBC Hgb Hct MCV MCH MCHC RDW Plt Count MPV Neut % (Auto) Lymph % (Auto) [place] % (Auto) Eos % (Auto) Baso % (Auto) Absolute Neuts (auto) Absolute Lymphs (auto) Absolute Monos (auto) Absolute Eos (auto) Absolute Basos (auto) Absolute Nucleated RBC Nucleated RBC % INR (Anticoag Therapy) Sodium 136 Potassium 3.8 Chloride 104 Carbon Dioxide 26 Anion Gap 6 BUN 17 Creatinine 1.09 Est GFR ( Amer) 79.6 Est GFR (Non-Af Amer) 65.8 BUN/Creatinine Ratio 15.6 Glucose 105 H Lactic Acid Calcium 7.5 L Total Bilirubin 1.90 H Direct Bilirubin Indirect Bilirubin AST 21 ALT 5 L Alkaline Phosphatase 49 Total Protein 6.1 L Albumin 3.5 Globulin 2.6 Albumin/Globulin Ratio 1.3 Intake & Output 01/01/19 01/02/1919 22:59 06:59 14:59 Intake Total 100 0 1037 Output Total 500 400 100 Balance -400 -400 937 Weight 175 lb 174 lb 13.225 oz Intake: IV Fluids 896 NS (0.9%) 896 IVPB 141 ABX - ZOSYN 141 Oral 100 0 Output: Urine 500 400 100 Other: Date of Last Bowel 01/02/19 Movement Estimated Stool Amount Large Physical exam: Abdomen- soft, tender in RUQ, no distension A/P: 78 M with acute cholecystitis and rising bilirubins. - Discussed with patient that we can proceed with laparascopic cholecystectomy today but he will have to continue to have his bilirubins trended post op to make sure they decline and no further intervention such as ERCP needs to be performed. He understands and agrees. - After surgery patient can resume a diet but should be NPO after midnight, pending his bilirubin on POD 1. - I previously discussed with him risks, benefits and alternatives of surgery and he wishes to proceed. He lives in [place]; I advised he would have to wait several days post op to be able to drive himself home
[2019-01-02] MEDS ORDERED: Propofol* 10 MG/ML 20 ML BTL ONE (10:10)
[2019-01-02] MEDS ORDERED: Lidocaine 2% PF * 5 ML VIAL ONE (10:10)
[2019-01-02] MEDS ORDERED: Dexamethasone IV* 4 MG/ML 1 ML (4 MG) ONE (10:10)
[2019-01-02] MEDS ORDERED: Ondansetron INJ* 2 MG/ML VIAL ONE (10:10)
[2019-01-02] MEDS ORDERED: Cisatracurium* 2 MG/ML MDV 5 ML ONE (10:11)
[2019-01-02] MEDS ORDERED: fentaNYL* 50 MCG/ML 2 ML VIAL (100 MCG VIAL) ONE ×2 (10:11→12:07)
[2019-01-02] MEDS ORDERED: Midazolam* 1 MG/ML 5 ML VIAL (5 MG) ONE (10:11)
[2019-01-02] MEDS ORDERED: Bupivacaine 0.25% SDV PF* 10 ML VIAL INJ ONE (10:13)
[2019-01-02] MEDS ORDERED: EPHEDrine (Pressors)* 50 MG/ML VIAL ONE (11:00)
[2019-01-02] MEDS ORDERED: Ondansetron INJ* 2 MG/ML VIAL IV PRN (11:37)
[2019-01-02] MEDS ORDERED: Naloxone* 0.4 MG/ML 1 ML VIAL IV PRN (11:37)
[2019-01-02] MEDS ORDERED: fentaNYL* 50 MCG/ML 2 ML VIAL (100 MCG VIAL) IV PRN (11:37)
[2019-01-02] MEDS ORDERED: Glycopyrrolate IV* 0.2 MG/ML 1 ML VIAL ONE (12:17)
[2019-01-02] MEDS ORDERED: Neostigmine Methylsulfate* 1 MG/ML 10 ML VIAL (1 mg/ml) ONE (12:17)
--- NOTE | 2019-01-02 13:10 | BRIEFOPN ---
Brief Operative/Procedure Note - Operation Details Pre-Op Diagnosis: acute cholecystitis Post-Op Diagnosis: acute cholecystitis Procedures: laparoscopic cholecystectomy Surgeon(s)/Proceduralists: Jamee Riojas Anesthesia: GETA Estimated Blood Loss: less than 10 cc Findings: inflamed, thick walled, distended gallbladder with fibrinous exudate Specimen(s)/Culture(s) Description: gallbladder Complications: none
[2019-01-02] MEDS: Lactated Ringers 1000 ML Bag* 1,000 ML IV SCH (14:00)
[2019-01-02] MEDS ORDERED: oxyCODONE/Acetamin 5/325 MG* TAB PO PRN (14:54)
--- NOTE | 2019-01-02 15:11 | OP ---
DATE OF OPERATION: 01/02/19 - ROOM #336 DATE OF : 44 SERVICE: General Surgery. ATTENDING SURGEON: Jamee Riojas MD [employer] DRIVER: Chris Suh MD ANESTHESIOLOGIST: Hema Vann MD ANESTHESIA: General endotracheal anesthesia. PRE-OP DIAGNOSIS: Acute cholecystitis. POST-OP DIAGNOSIS: Acute cholecystitis. OPERATIVE PROCEDURE: Laparoscopic cholecystectomy. ESTIMATED BLOOD LOSS: Minimal, less than 10 cc. SPECIMEN: Gallbladder. INDICATIONS FOR SURGERY: Mr. Dodd is a very pleasant 78-year-old gentleman with a history of Parkinson's disease, who lives in [place], but was passing through [place] when he developed right upper quadrant abdominal pain on prior to surgery. His labs and ultrasounds were normal and he was discharged home from the emergency room. However, he presented again on late Thursday night with complaints of recurrent pain and was found on CT scan and ultrasound to have gallbladder wall thickening, pericholecystic fluid and what appeared to be gallbladder sludge. His white count alex from 10 to 14 and his bilirubin was elevated at 1.3 and alex to 1.9. Given that he was febrile, had right upper quadrant pain and evidence of acute cholecystitis on imaging, he gave informed consent for laparoscopic cholecystectomy. He understood that the risks included, but were not limited to bleeding, infection, and injury to nearby structures including the common bile duct, the intestines and other nearby structures. He understood the alternatives and benefits as well and wished to proceed. The patient also understood that his bilirubin would need to be trended after surgery. If it continued to trend upwards, he may require intervention with an ERCP for evaluation of the common bile duct. He understood this, the benefits and alternatives of surgery and wished to proceed. DESCRIPTION OF PROCEDURE: The patient was brought back to the operating room and placed on the operating table in the supine position. Sequential compression devices were placed on the bilateral lower extremities for DVT prophylaxis. Antibiotics with Zosyn were administered. The patient's left arm was tucked. He underwent general endotracheal anesthesia and his abdomen was prepped and draped in normal sterile fashion. Prior to beginning the surgery, a time-out was performed verifying the patient's name, date of , and the procedure to be performed. Next, 0.25% Marcaine was infiltrated into the left upper quadrant at Sotelo's point. A small incision was made and the Veress needle was advanced into the abdominal cavity. The saline drop test was performed which was positive, therefore, insufflation was attached and obtained to 15 mmHg. Once this was done, a small 5- mm incision was made just above the umbilicus and the abdomen was entered using direct visualization with the Optiview technique. Once the abdomen was entered, the laparoscope was used to inspect the abdominal cavity cavity and in the left upper quadrant, the Veress needle was visualized. There was no apparent injury that had been made upon entry with the Veress needle; therefore, it was removed. Next, under direct visualization and after administrating 0.25% Marcaine, the remaining 3 trocars were placed. A 12-mm trocar was placed right of the falciform and an additional 5-mm trocar was placed in the right mid abdomen, another was placed in the right lateral abdomen. Next, the gallbladder was noted to be in the right upper quadrant. There was some omentum attached to it and some fibrinous exudate also surrounding it. It was clearly an edematous and inflamed gallbladder. It was very distended and difficult to grasp; therefore, an aspirating needle was placed through the gallbladder and about 10 cc of bilious fluid was aspirated to allow the gallbladder to be more easily grasped. Once this was done, the fundus of the gallbladder was grasped and elevated over the liver bed. The infundibulum was also grasped and some of the peritoneum and the omentum that was attached to this was dissected away using blunt dissection as well as electrocautery. The peritoneum on either side of the gallbladder wall was divided. With great care, the cystic duct and cystic artery both were skeletonized and the critical view was obtained. There was also what appeared to be a small posterior vessel behind the cystic artery. The liver was clearly visualized between all of the structures. Therefore, once this view was obtained, the cystic duct was clipped proximally twice and once distally. The cystic artery was clipped in a similar fashion and the posterior vessel was also clipped proximally twice and once distally. After this was done, all these structures were divided and the gallbladder was taken off the liver bed using electrocautery. It was placed into an Endo Catch bag and removed from the abdomen as a specimen. The right upper quadrant was irrigated and suctioned until the irrigation was clear and then careful attention to the liver bed showed that there were small areas of punctate bleeding, this was cauterized and at the end of the case hemostasis was satisfactorily obtained. The clips were visualized and remained on the cystic duct and cystic artery as well as the additional posterior vessel. The 12-mm trocar site was closed using a 0 Vicryl on a suture passer under direct visualization. A final inspection of the abdominal cavity showed that hemostasis had been obtained and then desufflation was then obtained after removing all the trocars under direct visualization. After this was done, all the skin was closed using interrupted 4- 0 Monocryl sutures. Sterile dressing was then placed. The patient's anesthesia was reversed and he was taken to the PACU in stable condition. At the end of the case, all counts were correct and I was present during the entirety of the case. [id number]/[facility] #: [id number] RADHA
[2019-01-02 17:38] LABS: Urine Appearance Clear; Urine Bacteria Absent (Absent); Urine Bilirubin Negative (Negative); Urine Blood 1+ (Negative); Urine Color Yellow; Urine Glucose Negative (Negative); Urine Ketones 1+ (Negative); Urine Nitrite Negative (Negative); Urine Protein Negative (Negative); Urine Red Blood Cell Trace(0-2/hpf) (Absent); Urine Urobilinogen Negative (Negative); Urine White Blood Cell Trace(0-5/hpf) (Absent)
--- NOTE | 2019-01-02 17:43 | PN ---
Subjective Date of Service: 01/02/19 Interval History: Patient went for laparoscopic cholecystectomy earlier today. He has some residual pain in RUQ. His nausea has resolved; he is taking PO liquids. He has very frequent urination, bladder scan showed 350cc. He normally takes Alfuzosin, Proscar, and trospium for BPH and bladder irritability. Family History: Unchanged from Admission Social History: Unchanged from Admission Past Medical History: Unchanged from Admission Objective Active Medications: Acetaminophen (Tylenol Tab*) 650 mg PO Q4H PRN PRN Reason: PAIN - MILD Last Admin: 01/01/19 15:59 Dose: 650 mg Alfuzosin HCl (Uroxatral (Nf)) 10 mg PO DAILY [facility] Carbidopa/Levodopa (Carbidopa/Levodopa Odt (Nf)) 1 tab PO TID [facility] Last Admin: 01/02/19 14:28 Dose: 1 tab Docusate Sodium (Colace Cap*) 200 mg PO BID [facility] Finasteride (Proscar Tab*) 5 mg PO DAILY [facility] Heparin Sodium (Porcine) (Heparin Vial(*)) 5,000 units SUBCUT Q8HR [facility] Last Admin: 01/02/19 14:26 Dose: 5,000 units Lactated Ringer's (Lactated Ringers 1000 Ml Bag*) 1,000 mls @ 75 mls/hr IV .PER RATE [facility] Last Admin: 01/02/19 14:00 Dose: 75 mls/hr Losartan Potassium (Cozaar Tab*) 50 mg PO DAILY [facility] Morphine Sulfate (Morphine Inj (Syringe)*) 4 mg IV Q4H PRN PRN Reason: PAIN - SEVERE Nf:(Trospium Chloride [Trospium Chloride Er] 60 Mg) 60 mg PO BID [facility] Ondansetron HCl (Zofran Inj*) 4 mg IV Q6H PRN PRN Reason: NAUSEA Oxycodone/Acetaminophen (Percocet 5/325 Tab*) 1 tab PO Q6H PRN PRN Reason: PAIN - MODERATE Pantoprazole Sodium (Protonix Tab*) 40 mg PO DAILY [facility] Polyethylene Glycol/Electrolytes (Miralax*) 17 gm PO DAILY [facility] Vital Signs - 8 hr 01/02/19 01/02/19 01/02/19 12:39 12:40 12:41 Temperature 36.1 C Pulse Rate 84 85 83 Respiratory 18 6 Rate Blood Pressure 143/66 141/74 (mmHg) O2 Sat by Pulse 95 94 95 Oximetry 01/02/19 01/02/19 01/02/19 12:45 12:50 12:55 Temperature Pulse Rate 84 83 84 Respiratory 22 19 23 Rate Blood Pressure 144/80 146/76 151/75 (mmHg) O2 Sat by Pulse 95 96 95 Oximetry 01/02/19 16:00 Temperature 37.0 C Pulse Rate 77 Respiratory 18 Rate Blood Pressure 150/82 (mmHg) O2 Sat by Pulse 96 Oximetry Oxygen Devices in Use Now: Nasal Cannula Appearance: alert, no distress Ears/Nose/Mouth/Throat: NL Teeth, Lips, Gums, Clear Oropharnyx Neck: NL Appearance and Movements; NL JVP Respiratory: Symmetrical Chest Expansion and Respiratory Effort, Clear to Auscultation Cardiovascular: NL Sounds; No Murmurs; No JVD, RRR, - - 1/6 systolic murmur Abdominal: - - distended, soft, RUQ tender, +BS Lymphatic: No Cervical Adenopathy Extremities: No Edema Neurological: Alert and Oriented x 3, - - RT hand tremor Lines/Tubes/Other Access: Clean, Dry and Intact Peripheral IV Nutrition: Taking PO's Result Diagrams: 01/02/19 04:41 01/02/19 04:41 Additional Lab and Data: Laboratory Tests 01/01/19 01/01/19 01/02/19 10:12 10:12 04:41 Glucose 105 H Lactic Acid 1.0 Total Bilirubin 1.30 H 1.90 H Microbiology and Other Data: Microbiology 01/01/19 06:15 Urine Culture - Final Urine No Growth (<1,000 CFU/mL) 01/01/19 05:01 Aerobic Blood Culture - Preliminary Blood Venous No Growth Day 1 Anaerobic Blood Culture - Preliminary No Growth Day 1 01/01/19 04:52 Aerobic Blood Culture - Preliminary Blood Venous No Growth Day 1 Anaerobic Blood Culture - Preliminary No Growth Day 1 Assess/Plan/Problems-Billing Assessment: 78 year old with Parkinsons, HTN, BPH, here with acute cholecystitis, s/p lap yolis. - Patient Problems (1) Cholecystitis without calculus Current Visit: Yes Status: Acute Priority: High Code(s): K81.9 - CHOLECYSTITIS, UNSPECIFIED SNOMED Code(s): 90562288 Comment: -Surgery appears successful without complications -Bilirubin alex, will recheck tomorrow -Dr Rodríguez's consult appreciated. (2) Hypertension Current Visit: Yes Status: Chronic Priority: Low Code(s): I10 - ESSENTIAL (PRIMARY) HYPERTENSION SNOMED Code(s): 79647752 Comment: -BP elevated, will restart losartan (3) BPH (benign prostatic hyperplasia) Current Visit: Yes Status: Chronic Priority: Medium Code(s): N40.0 - BENIGN PROSTATIC HYPERPLASIA WITHOUT LOWER URINRY TRACT SYMP SNOMED Code(s): 419772610 Comment: -Will restart proscar, Alfuzosin, and trospium -Will try to avoid need for straight cath, page (4) Parkinson disease Current Visit: Yes Status: Chronic Priority: Medium Code(s): G20 - PARKINSON'S DISEASE SNOMED Code(s): 12843498 Comment: -Restarting outpatient Sinemet dose. Status and Disposition: inpatient, hospitalists will follow
[2019-01-02] MEDS: PTO:Alfuzosin ER (NF) 10 MG TAB.ER PO SCH (18:22)
[2019-01-02] MEDS: Losartan TAB* 25 MG PO SCH (18:22)
[2019-01-02] MEDS: Docusate CAP* 100 MG PO SCH (20:28)
[2019-01-02] MEDS: TROSPIUM CHLORIDE 60 MG PO SCH (20:37)
[2019-01-02] MEDS ORDERED: Carbidopa/Levodop 25/100 MG TAB(*) PO SCH (21:00)
[2019-01-03] MEDS: Lactated Ringers 1000 ML Bag* 1,000 ML IV SCH (02:40)
[2019-01-03] MEDS: Heparin VIAL(*) 5000 UNITS/ML VIAL (FIVE THOUSAND) SUBCUT SCH (05:45)
[2019-01-03 05:53] LABS: ABS Lymphocytes 0.7 10^3/ul (1.0-4.8); ABS Monocytes 1.1 10^3/ul (0-0.8); ABS Neutrophils 9.1 10^3/ul (1.5-7.7); Hematocrit 35 % (42-52); Hemoglobin 12.2 g/dL (14.0-18.0); Lymphocyte % 6.6 %; Mean Corpuscular HGB Conc 35 g/dL (31-36); Mean Corpuscular Hemoglobin 33 pg (27-31); Mean Corpuscular Volume 94 fL (80-94); Nucleated Red Blood Cells % 0.1; Red Blood Count 3.75 10^6 /uL (4.18-5.48); Red Cell Distribution Width 15 % (10-15); White Blood Count 10.9 10^3/uL (3.5-10.8)
[2019-01-03 05:55] LABS: Albumin 3.3 g/dL (3.2-5.2); Calcium 7.6 mg/dL (8.6-10.3); Potassium 3.8 mmol/L (3.5-5.0); Total Bilirubin 0.9 mg/dL (0.2-1.0)
[2019-01-03 06:01] LABS: Albumin/Globulin Ratio 1.3 (1-3); BUN/Creatinine Ratio 14.6 (8-20); EGFR African American 92.1 (>60); EGFR Non-African American 76.2 (>60); Globulin 2.6 g/dL (2-4); Total Protein 5.9 g/dL (6.4-8.9)
[2019-01-03 08:07] LABS: Platelet Count Platelets clumped. 10^3/uL (150-450)
[2019-01-03] MEDS ORDERED: Finasteride TAB* 5 MG PO SCH (09:00)
[2019-01-03] MEDS ORDERED: Polyethylene Glycol 3350* 17 GM PACKET PO SCH (09:00)
[2019-01-03] MEDS ORDERED: Pantoprazole TAB * 40 MG TAB PO SCH (09:00)
[2019-01-03] MEDS: PTO:Alfuzosin ER (NF) 10 MG TAB.ER PO SCH (09:21)
[2019-01-03] MEDS: CARBIDOPA PO SCH (09:21)
[2019-01-03] MEDS: LEVODOPA PO SCH (09:21)
[2019-01-03] MEDS: Docusate CAP* 100 MG PO SCH (09:21)
[2019-01-03] MEDS: Losartan TAB* 25 MG PO SCH (09:21)
[2019-01-03] MEDS: TROSPIUM CHLORIDE 60 MG PO SCH (09:22)
--- NOTE | 2019-01-03 10:25 | PN ---
Progress Note - Progress Note Date of Service: 01/03/19 Note: Surgery Progress Note S: Patient feels better today. He has some pain when he moves. He is tolerating a diet without nausea or emesis. He has not needed pain medications. O: Vital Signs - 24 hr 01/02/19 01/02/19 01/02/19 12:39 12:40 12:41 Temperature 97.0 F Pulse Rate 84 85 83 Respiratory 18 6 Rate Blood Pressure 143/66 141/74 (mmHg) O2 Sat by Pulse 95 94 95 Oximetry 01/02/19 01/02/19 01/02/19 12:45 12:50 12:55 Temperature Pulse Rate 84 83 84 Respiratory 22 19 23 Rate Blood Pressure 144/80 146/76 151/75 (mmHg) O2 Sat by Pulse 95 96 95 Oximetry 01/02/19 01/02/19 01/02/19 13:00 13:01 13:15 Temperature Pulse Rate Respiratory 24 29 20 Rate Blood Pressure 156/76 146/81 (mmHg) O2 Sat by Pulse Oximetry 01/02/19 01/02/19 01/02/19 13:31 14:08 15:13 Temperature 98.7 F 96.2 F Pulse Rate 83 73 Respiratory 30 18 16 Rate Blood Pressure 167/87 152/82 152/82 (mmHg) O2 Sat by Pulse 93 96 Oximetry 01/02/19 01/02/19 01/02/19 16:00 18:25 19:54 Temperature 98.6 F 99.6 F Pulse Rate 77 84 Respiratory 18 16 Rate Blood Pressure 150/82 154/82 (mmHg) O2 Sat by Pulse 96 95 95 Oximetry 01/02/19 01/02/19 01/03/19 20:00 20:30 01:10 Temperature 100.4 F 99.4 F Pulse Rate 85 84 Respiratory 16 16 16 Rate Blood Pressure 122/82 138/76 (mmHg) O2 Sat by Pulse 94 94 Oximetry 01/03/19 01/03/19 01/03/19 04:26 07:49 08:04 Temperature 99.4 F 99.5 F Pulse Rate 84 93 Respiratory 16 16 17 Rate Blood Pressure 132/80 140/81 (mmHg) O2 Sat by Pulse 94 94 Oximetry Laboratory Results - last 24 hr 01/02/19 01/03/19 01/03/19 17:15 05:29 05:29 WBC 10.9 H RBC 3.75 L Hgb 12.2 L Hct 35 L MCV 94 MCH 33 H MCHC 35 RDW 15 Plt Count Platelets clumped. H MPV Not Reportable Neut % (Auto) 83.1 Lymph % (Auto) 6.6 [place] % (Auto) 10.1 Eos % (Auto) 0.0 Baso % (Auto) 0.2 Absolute Neuts (auto) 9.1 H Absolute Lymphs (auto) 0.7 L Absolute Monos (auto) 1.1 H Absolute Eos (auto) 0.0 Absolute Basos (auto) 0.0 Absolute Nucleated RBC 0.0 Nucleated RBC % 0.1 Sodium 136 Potassium 3.8 Chloride 105 Carbon Dioxide 23 Anion Gap 8 BUN 14 Creatinine 0.96 Est GFR ( Amer) 92.1 Est GFR (Non-Af Amer) 76.2 BUN/Creatinine Ratio 14.6 Glucose 121 H Calcium 7.6 L Total Bilirubin 0.90 AST 41 H ALT 10 Alkaline Phosphatase 52 Total Protein 5.9 L Albumin 3.3 Globulin 2.6 Albumin/Globulin Ratio 1.3 Urine Color Yellow Urine Appearance Clear Urine pH 6.0 Ur Specific [place] 1.010 Urine Protein Negative Urine Ketones 1+ A Urine Blood 1+ A Urine Nitrate Negative Urine Bilirubin Negative Urine Urobilinogen Negative Ur Leukocyte Esterase Negative Urine WBC (Auto) Trace(0-5/hpf) Urine RBC (Auto) Trace(0-2/hpf) Urine Bacteria Absent Urine Glucose Negative Intake & Output 01/02/19 01/03/19 01/03/19 22:59 06:59 14:59 Intake Total 575 1410 492 Output Total 875 350 400 Balance -300 1060 92 Intake: IV Fluids 1050 492 LR 1050 492 Oral 575 360 Output: Urine 875 350 400 Physical exam: Abdomen- soft, minimally tender around epigastric incision, minimally distended. Incisions c/d/i A/P: 78 M with acute cholecystitis, POD 1 from laparoscopic cholecystectomy, doing well. - Bilirubin normalized today, WBC downtrending and patient is afebrile - DC today. Discussed plan with patient, as he is from [place]. He plans to stay in area for a few days with friends or at a hotel until he can drive home. He will follow up with PCP in [place] in 2 weeks. Percocet rx to be sent to [facility]. Patient understands he cannot drive if he is taking narcotics. Return precautions discussed with patient.
[2019-01-03 11:32] LABS: Mean Platelet Volume 7.9 fL (7.4-10.4); Platelet Count 194 10^3/uL (150-450)
[2019-01-03 11:47] VITALS: BP 130/76
--- NOTE | 2019-01-03 11:51 | PN ---
Progress Note - Progress Note Date of Service: 01/02/19 SOAP: Subjective: Patient comfortable, reports minimal post operative pain, feels a little bloated. - flatus[] Objective: ABD: soft, N/D, Incisional tendernes incisions C/D/I, no eccymosis, errythema[] Calves: Soft, non tender Assessment: Stable S/P Lap Melania[] Plan: D/C today. Patient is from [place] but reports he will stay locally for a few days before returning home. I reviewed the need to follow up with his PCP in 2 weeks, and to call or return to the office here prior to returning to [place] if he has any problems or questions. Patient agreed. All questions were answered. Prescription for Percocet 5/325 10 pills was sent to hospital pharmacy, Meds to Beds. Above D/W Dr Riojas[]
--- NOTE | 2019-01-03 13:11 | PN ---
Hospitalist Progress Note Date of Service: 01/03/19 Pt examined at bedside. Doing well. PE: wnl, no abd tenderness s/p Lap Melania for Cholecystitis Discharged by surgery and has no questions about paperwork Pt to f/u with his PCP in [place]
--- NOTE | 2019-01-03 19:30 | DS ---
CONTINUATION ADDENDUM NOW INCLUDED ON THIS REPORT DISCHARGE SUMMARY: DATE OF ADMISSION: 01/01/19 DATE OF DISCHARGE: 01/03/19 ATTENDING SURGEON: Dr. Riojas.* (DICTATED BY RAJENDRA MENJIVAR) HOSPITAL COURSE: The patient is a pleasant 78-year-old male with a history of Parkinson's disease, hypertension, GERD, overactive bladder, BPH, presented to the emergency room after complaining of 2 weeks of right upper quadrant pain after a meal. More recently, it happened after having a fatty meal. He came to the ER, was treated, pain resolved and was discharged home. The patient returned to the ER when he had another episode of unrelenting pain. The patient was admitted to the hospital, this was on 01/01/19 and taken to the operating room on 01/02/19 for laparoscopic cholecystectomy. The patient tolerated the procedure well and was transferred back to the surgical care unit for postoperative care. On 01/03/19 postop day 1 on physical exam, the patient exam was benign, the patient was comfortable with minimal postoperative pain. Incisions were clean, dry, and intact. The patient was stable and wishing for discharge. The patient does not live in the area, he lives in the [facility], but is reported that he will be staying locally for few days before returning home. Reviewed with the patient the need to follow up with his PCP in 2 weeks and to call or return to our office here prior to return to [facility] if any problems before he leaves. The patient was discharged in stable condition ultimately to home. Discharge instructions were given to the patient regarding diet, meds, activity and followup, not to leave immediately and drive back to [place]. All of his questions were answered. The patient discharged on . RAJENDRA MENJIVAR [id number]/[facility] #: [id number]/CPS #: [id number] RADHA
--- NOTE | 2019-01-04 14:59 | DS ---
DISCHARGE SUMMARY: ADDENDUM: HOSPITAL COURSE: The patient returned to the ER when he had another episode of unrelenting pain. The patient was admitted to the hospital, this was on and taken to the operating room on 01/02/19 for laparoscopic cholecystectomy. The patient tolerated the procedure well and was transferred back to the surgical care unit for postoperative care. On 01/03/19 postop day 1 on physical exam, the patient was comfortable with minimal postoperative pain. Incisions were clean, dry, and intact. The patient was stable and wishing for discharge. The patient does not live in the area, he lives in the [facility], but is reported that he will be staying locally for few days before returning home. Reviewed with the patient the needs to follow up with his PCP in 2 weeks and to call or return to our office here prior to return to [facility] if any problems before he leaves. The patient was discharged in stable condition ultimately to home. Discharge instructions were given to the patient regarding diet, meds, activity and followup, not to leave immediately and drive back to [place]. All of his questions were answered. The patient discharged on 01/03/19. RAJENDRA MENJIVAR [id number]/[facility] #: [id number] RADHA
== END 2019-01-03 13:45 | disposition home or self-care (01) | DRG 419 ==
LOC: ED 04:12 → SSU 11:15
PROVIDERS: ADMIT Internal Medicine; ATTEND Surgery
PROC: 0FT44ZZ Resection of Gallbladder, Percutaneous Endoscopic Approach (ICD-10-PCS; principal; 2019-01-01)
DX: K81.0 Acute cholecystitis (principal); G20 Parkinson's disease; I10 Essential (primary) hypertension; K21.9 Gastro-esophageal reflux disease without esophagitis; N40.1 Benign prostatic hyperplasia with lower urinary tract symptoms; N32.81 Overactive bladder; Z96.611 Presence of right artificial shoulder joint; K57.90 Diverticulosis of intestine, part unspecified, without perforation or abscess without bleeding; M85.80 Other specified disorders of bone density and structure, unspecified site; Z87.442 Personal history of urinary calculi; Z80.1 Family history of malignant neoplasm of trachea, bronchus and lung
CPT/HCPCS: 36415; 71045; 74177; 76705; 80053; 80076; 81003; 81015; 83605; 83690; 85025; 85049; 85610; 86140; 87040; 87086; 88304; 96361; 96374; 96375; 99284; A9270-GY; J1100; J1644; J2250; J2270; J2405; J2543; J2704; J2710; J3010; J3490; Q9967

== ENCOUNTER 2019-01-05 19:14 | Emergency (ER) | payer MEDICARE, BC ==
--- OUTSIDE RECORDS SUMMARY | 2019-01-05 19:29 | XMS REPORT | Continuity of Care Document ---
:1940 External Reference #:[id number] Author Name Jamee Riojas MD (transmitted by agent of provider Genet Ortega) Address [address], [place] [address] Problems Description No Information Available Social History Type Date Description Comments Sex Unknown Tobacco Use Start: Unknown Patient has never smoked Smoking Status Reviewed: 01/05/19 Patient has never smoked Allergies, Adverse Reactions, Alerts Description No Known Drug Allergies Medications Active Medications SIG Qnty Indications Ordering Date Provider Trospium Chloride ER 1 by mouth every Jamee Riojas MD 01/05/2019 60mg Caps ER day 24HR [place] 3 1 by mouth daily Unknown 1000mg Capsules Losartan Potassium 1 by mouth every Unknown 50mg Tablets day Omeprazole 1 by mouth every Unknown 40mg Capsules DR day Miralax take 1 packet Unknown [id number] Packet daily as needed for constipation Finasteride 1 by mouth every Unknown 5mg Tablets day Docusate Sodium 1 tab every 12 Unknown 100mg Tablets hours as needed for constipation Hydrochlorothiazide 1 by mouth every Unknown 12.5mg day Capsules Alfuzosin HCL ER Unknown 10mg Tablets ER 24HR Multivitamin Adult 1 by mouth every Unknown Tablets day Aspirin 81 1 by mouth every Unknown 81mg Tablets DR day Calcium Citrate 1-4 by mouth as Unknown 200mg Tablets needed Immunizations Description No Information Available Vital Signs Date Vital Result Comment 01/05/2019 2:09pm Height 67 inches 5'7" Weight 175.00 lb Heart Rate 76 /min BP Systolic 142 mmHg BP Diastolic 84 mmHg Respiratory Rate 16 /min Body Temperature 99.8 F BMI (Body Mass Index) 27.4 kg/m2 Results Test Date Facility Test Result H/L Range Note CBC Auto 01/05/2019 [facility] White Blood 7.1 10^3/uL Normal 3.5-10.[address] [place] [address] [phone] Red Blood Count 3.84 10^6/uL Low 4.18-5.48 Hemoglobin 12.4 g/dL Low 14.0-18.0 Hematocrit 35 % Low 42-52 Mean Corpuscular Volume 92 fL Normal 80-94 Mean Corpuscular Hemoglobin 32 pg High 27-31 Mean Corpuscular HGB Conc 35 g/dL Normal 31-36 Red Cell Distribution Width 15 % Normal 10-15 Platelet Count 239 10^3/uL Normal 150-450 Mean Platelet Volume 8.0 fL Normal 7.4-10.4 Abs Neutrophils 4.9 10^3/uL Normal 1.5-7.7 Abs Lymphocytes 1.0 10^3/uL Normal 1.0-4.8 Abs Monocytes 1.0 10^3/uL High 0-0.8 Abs Eosinophils 0.1 10^3/uL Normal 0-0.6 Abs Basophils 0.0 10^3/uL Normal 0-0.2 Abs Nucleated RBC 0.0 10^3/uL Granulocyte % 69.7 % Lymphocyte % 14.1 % Monocyte % 14.5 % Eosinophil % 1.4 % Basophil % 0.3 % Nucleated Red Blood Cells % 0.0 Comp Metabolic 01/05/2019 [facility] Sodium 136 mmol/L Normal 135-[address] [place] [address] [phone] Potassium 3.7 mmol/L Normal 3.5-5.0 Chloride 103 mmol/L Normal 101-111 Co2 Carbon Dioxide 27 mmol/L Normal 22-32 Anion Gap 6 mmol/L Normal 2-11 Glucose 116 mg/dL High 70-100 Blood Urea Nitrogen 11 mg/dL Normal 6-24 Creatinine 0.92 mg/dL Normal 0.67-1.17 BUN/Creatinine Ratio 12.0 Normal 8-20 Calcium 8.1 mg/dL Low 8.6-10.3 Total Protein 6.1 g/dL Low 6.4-8.9 Albumin 3.4 g/dL Normal 3.2-5.2 Globulin 2.7 g/dL Normal 2-4 Albumin/Globulin Ratio 1.3 Normal 1-3 Total Bilirubin 0.90 mg/dL Normal 0.2-1.0 Alkaline Phosphatase 82 U/L Normal 34-104 Alt 13 U/L Normal 7-52 Ast 44 U/L High 13-39 Egfr Non- 80.0 >60 Egfr 96.8 >60 1 Laboratory test 01/05/2019 [facility] Lipase 35 U/L Normal 11.0-82.[address] [place] [address] [phone] Inr/Protime 01/01/2019 [facility] Inr 1.30 High 0.82-1.[address] [place] [address] [phone] Laboratory test 01/01/2019 [facility] Lactic Acid 1.0 Normal 0.5-2.0 3 finding [address] [facility] mmol/[place] [address] [phone] Liver Function 01/01/2019 [facility] Total 6.9 g/dL Normal 6.4 -8.9 Panel [address] [place] [address] [phone] Albumin 4.1 g/dL Normal 3.2-5.2 Globulin 2.8 g/dL Normal 2-4 Albumin/Globulin Ratio 1.5 Normal 1-3 Total Bilirubin 1.30 mg/dL High 0.2-1.0 Direct Bilirubin 0.30 mg/dL High 0.03-0.18 Indirect Bilirubin 1.0 mg/dL Normal 0.3-1.0 Alkaline Phosphatase 54 U/L Normal 34-104 Alt 18 U/L Normal 7-52 Ast 19 U/L Normal 13-39 CBC Auto 01/01/2019 [facility] White Blood 14.3 10^3/uL High 3.5-10.[address] [place] [address] [phone] Red Blood Count 4.39 10^6/uL Normal 4.18-5.48 Hemoglobin 14.1 g/dL Normal 14.0-18.0 Hematocrit 41 % Low 42-52 Mean Corpuscular Volume 93 fL Normal 80-94 Mean Corpuscular Hemoglobin 32 pg High 27-31 Mean Corpuscular HGB Conc 35 g/dL Normal 31-36 Red Cell Distribution Width 15 % Normal 10-15 Platelet Count 192 10^3/uL Normal 150-450 Mean Platelet Volume 7.8 fL Normal 7.4-10.4 Abs Neutrophils 11.4 10^3/uL High 1.5-7.7 Abs Lymphocytes 1.1 10^3/uL Normal 1.0-4.8 Abs Monocytes 1.7 10^3/uL High 0-0.8 Abs Eosinophils 0.0 10^3/uL Normal 0-0.6 Abs Basophils 0.0 10^3/uL Normal 0-0.2 Abs Nucleated RBC 0.0 10^3/uL Granulocyte % 79.8 % Lymphocyte % 7.8 % Monocyte % 12.1 % Eosinophil % 0.0 % Basophil % 0.3 % Nucleated Red Blood Cells % 0.0 1 Because ethnic data is not always readily available, this report includes an eGFR for both -Americans and non- Americans. The National Kidney Disease Education Program (NKDEP) does not endorse the use of the MDRD equation for patients that are not between the ages of 18 and 70, are , have extremes of body size, muscle mass, or nutritional status, or are non- or non-. According to the National Kidney Foundation, irrespective of diagnosis, the stage of the disease is based on the level of kidney function: Stage Description GFR(mL/min/1.73 m(2)) 1 Kidney damage with normal or decreased GFR 90 2 Kidney damage with mild decrease in GFR 60-89 3 Moderate decrease in GFR 30-59 4 Severe decrease in GFR 15-29 5 Kidney failure <15 (or dialysis) 2 Standard intensity warfarin therapeutic range: 2.0-3.0 High intensity warfarin therapeutic range: 2.5-3.5 3 [place] Severe Sepsis and Septic Shock Management Bundle Measure requires all lactic acids initially measuring >2.0 mmol/L be repeated. Procedures Description No Information Available Medical Devices Description No Information Available Encounters Description No Information Available Assessments Date Code Description Provider 01/05/2019 K80.12 Calculus of gallbladder with acute and Jamee Riojas MD chronic cholecystitis without obstruction 01/02/2019 K80.12 Calculus of gallbladder with acute and Ezekiel Nichols PA-C chronic cholecystitis without obstruction Plan of Treatment 01/05/2019 - Jamee Riojas MDK80.12 Calculus of gallbladder with acute and chronic cholecystitis without obstructionFollow up:Please obtain labs today at [facility] If you have more pain, nausea or emesis please return to the ED. Functional Status Description No Information Available Mental Status Description No Information Available Referrals Description No Information Available
--- NOTE | 2019-01-05 23:16 | ED ---
GI/ HPI - HPI Summary HPI Summary: Patient with history of BPH complains of difficulty urinating. Patient states that if he walks around for a couple hours he is able to urinate, otherwise unable to initiate flow. Patient currently visiting [place] from [place], has urologist in [place]. Patient requesting catheter until he can follow up with urology in [place]. Denies any other pain, injury or symptoms. - History of Current Complaint Chief Complaint: EDUrogenitalProblems Time Seen by Provider: 01/05/19 23:14 Stated Complaint: UNABLE TO URINATE Hx Obtained From: Patient Onset/Duration: Started Hours Ago Timing: Constant Severity: Moderate Current Severity: Moderate Pain Intensity: 5 Location of Pain: Diffuse, Suprapubic Pain Characteristics: Cramping Associated Signs and Symptoms: Positive: Dysuria - Additional Pertinent History Primary Care Physician: TORY - Allergy/Home Medications Allergies/Adverse Reactions: Allergies Allergy/AdvReac Type Severity Reaction Status Date / Time No Known Allergies Allergy Verified 01/05/19 19:20 PMH/Surg Hx/FS Hx/Imm Hx Endocrine/Hematology History: Denies: Hx Anticoagulant Therapy, Hx Diabetes Cardiovascular History: Reports: Hx Hypertension GI History: Reports: Hx Gastroesophageal Reflux Disease, Other GI Disorders - constipation History: Reports: Hx Benign Prostatic Hyperplasia, Hx Kidney Stones, Other Problems/Disorders - over reactive bladder Denies: Hx Renal Disease Sensory History: Denies: Hx Contacts or Glasses, Hx Hearing Aid Opthamlomology History: Denies: Hx Contacts or Glasses EENT History: Denies: Hx Deafness Neurological History: Reports: Other Neuro Impairments/Disorders - Parkinsons Disease - Surgical History Surgery Procedure, Year, and Place: right TSA Hx Anesthesia Reactions: No Infectious Disease History: No Infectious Disease History: Reports: Hx of Known/Suspected MRSA Denies: Traveled Outside the [place] in Last 30 Days - Family History Known Family History: Negative: Cardiac Disease - Social History Alcohol Use: None Substance Use Type: Reports: None Smoking Status (MU): Never Smoked Tobacco Review of Systems Constitutional: Negative Eyes: Negative ENT: Negative Cardiovascular: Negative Respiratory: Negative Gastrointestinal: Negative Positive: dysuria Musculoskeletal: Negative Skin: Negative Neurological: Negative Psychological: Normal All Other Systems Reviewed And Are Negative: Yes Physical Exam Triage Information Reviewed: Yes Vital Signs On Initial Exam: Initial Vitals Temp Pulse Resp BP Pulse Ox 98.5 F 85 16 173/99 95 01/05/19 19:15 01/05/19 19:15 01/05/19 19:15 01/05/19 19:15 01/05/19 19:15 Vital Signs Reviewed: Yes Appearance: Positive: Well-Appearing Skin: Positive: Warm Head/Face: Positive: Normal Head/Face Inspection Eyes: Positive: Normal Neck: Positive: Supple Respiratory/Lung Sounds: Positive: Clear to Auscultation Cardiovascular: Positive: Normal Abdomen Description: Positive: Nontender Musculoskeletal: Positive: Normal Neurological: Positive: Normal Psychiatric: Positive: Normal AVPU Assessment: Alert - Alanna Coma Scale Best Eye Response: 4 - Spontaneous Best Motor Response: 6 - Obeys Commands Best Verbal Response: 5 - Oriented Coma Scale Total: 15 Procedures - Sedation Patient Received Moderate/Deep Sedation with Procedure: No Diagnostics - Vital Signs Vital Signs Temp Pulse Resp BP Pulse Ox 01/05/19 20:55 98.4 F 78 16 141/75 96 01/05/19 19:15 98.5 F 85 16 173/99 95 - Laboratory Lab Statement: Any lab studies that have been ordered have been reviewed, and results considered in the medical decision making process. GIGU Course/Dx - Course Course Of Treatment: Patient with history of BPH complains of difficulty urinating. Patient states that if he walks around for a couple hours he is able to urinate, otherwise unable to initiate flow. Patient currently visiting [place] from [place], has urologist in [place]. Patient requesting catheter until he can follow up with urology in [place]. Denies any other pain, injury or symptoms. Vital signs within normal limits. UA negative. Post void scan 150 ml. Patient was able to void only after walking around. Catheter inserted. Patient will follow up with urologist in [place]. - Diagnoses Provider Diagnoses: Acute urinary retention Discharge ED - Sign-Out/Discharge Documenting (check all that apply): Patient Departure - Discharge Plan Condition: Stable Disposition: HOME Patient Education Materials: Urinary Retention in Men (ED), Michel Catheter Placement and Care (ED) Referrals: No Primary Care Phys,NOPCP [Primary Care Provider] - Additional Instructions: Follow-up with your urologist when you get back to [place]. Return to the ED for any new or worsening symptoms. - Billing Disposition and Condition Condition: STABLE Disposition: Home - Attestation Statements Provider Attestation: I was available for consult. This patient was seen by the [facility]. The patient was not presented to, seen by, or examined by me. Pepito Martini MD
[2019-01-06 00:01] LABS: Urine Appearance Cloudy; Urine Bilirubin Negative (Negative); Urine Blood Negative (Negative); Urine Color Yellow; Urine Glucose Negative (Negative); Urine Ketones Negative (Negative); Urine Nitrite Negative (Negative); Urine Protein Negative (Negative); Urine Urobilinogen Negative (Negative)
[2019-01-06 02:46] VITALS: BP 146/87
== END 2019-01-06 00:45 | disposition home or self-care (01) ==
LOC: ED 19:14
DX: N40.1 Benign prostatic hyperplasia with lower urinary tract symptoms (principal); R33.8 Other retention of urine; K80.12 Calculus of gallbladder with acute and chronic cholecystitis without obstruction; I10 Essential (primary) hypertension; K21.9 Gastro-esophageal reflux disease without esophagitis; Z87.442 Personal history of urinary calculi
CPT/HCPCS: 36415; 51702; 80053; 81003; 83690; 85025; 99282

== ENCOUNTER 2019-01-07 11:30 | Emergency (ER) | payer MEDICARE, BC ==
[2019-01-07 12:52] LABS: Hematocrit 37 % (42-52); Hemoglobin 12.8 g/dL (14.0-18.0); Mean Corpuscular HGB Conc 35 g/dL (31-36); Mean Corpuscular Hemoglobin 32 pg (27-31); Mean Corpuscular Volume 92 fL (80-94); Mean Platelet Volume 7.6 fL (7.4-10.4); Platelet Count 343 10^3/uL (150-450); Red Blood Count 3.96 10^6 /uL (4.18-5.48); Red Cell Distribution Width 15 % (10-15); White Blood Count 7.7 10^3/uL (3.5-10.8)
[2019-01-07 13:08] LABS: Albumin 3.6 g/dL (3.2-5.2); Albumin/Globulin Ratio 1.2 (1-3); BUN/Creatinine Ratio 15.8 (8-20); Calcium 9.2 mg/dL (8.6-10.3); EGFR African American 86.9 (>60); EGFR Non-African American 71.8 (>60); Globulin 3.1 g/dL (2-4); Potassium 3.5 mmol/L (3.5-5.0); Total Bilirubin 0.7 mg/dL (0.2-1.0); Total Protein 6.7 g/dL (6.4-8.9)
--- NOTE | 2019-01-07 13:23 | ED ---
GI/ HPI - HPI Summary HPI Summary: 78 year old male presents to the ED with a chief complaint of burning dysuria secondary to Page catheter placement beginning this morning. The pain is rated an 8/10 in intensity. The catheter was inserted 3 days ago due to a urinary blockage. Apart from the pain, the patient is also experiencing leakage from the catheter and hematuria. Pt denies any fever, chills, erythema of eyes, sore throat, CP, SOB, cough, abdominal pain, N/V, myalgia, edema, rash, or dizziness. Patient has a recent PSHx of a cholecystectomy five days ago. PMHx of Parkinsons. - History of Current Complaint Chief Complaint: EDUrogenitalProblems Time Seen by Provider: 01/07/19 12:05 Stated Complaint: BLOOD IN CATH BAG PER PT Hx Obtained From: Patient Onset/Duration: Started Hours Ago, Still Present, Worse Since - This morning Timing: Constant Severity: Severe Current Severity: Severe Pain Intensity: 8 Location of Pain: Groin Additional Locations for Males: Penis Pain Characteristics: Burning Associated Signs and Symptoms: Positive: Hematuria, Dysuria, Other: - Positive: Catheter leakage. Negative: erythema of eyes, sore throat, SOB, myalgia, edema, rash. Negative: Dizziness, Nausea, Vomiting, Fever, Chills, Abdominal Pain, Cough, Chest Pain Aggravating Factor(s): Voiding Alleviating Factor(s): Nothing - Additional Pertinent History Primary Care Physician: [id number] - Allergy/Home Medications Allergies/Adverse Reactions: Allergies Allergy/AdvReac Type Severity Reaction Status Date / Time No Known Allergies Allergy Verified 01/05/19 19:20 PMH/Surg Hx/FS Hx/Imm Hx Endocrine/Hematology History: Denies: Hx Anticoagulant Therapy, Hx Diabetes Cardiovascular History: Reports: Hx Hypertension GI History: Reports: Hx Gastroesophageal Reflux Disease, Other GI Disorders - constipation History: Reports: Hx Benign Prostatic Hyperplasia, Hx Kidney Stones, Other Problems/Disorders - over reactive bladder Denies: Hx Renal Disease Sensory History: Denies: Hx Contacts or Glasses, Hx Hearing Aid Opthamlomology History: Denies: Hx Contacts or Glasses Neurological History: Reports: Other Neuro Impairments/Disorders - Parkinsons Disease - Surgical History Surgical History: Yes Surgery Procedure, Year, and Place: right TSA Hx Anesthesia Reactions: No Infectious Disease History: No Infectious Disease History: Reports: Hx of Known/Suspected MRSA Denies: Traveled Outside the [place] in Last 30 Days - Family History Known Family History: Negative: Cardiac Disease - Social History Alcohol Use: None Hx Substance Use: No Substance Use Type: Reports: None Hx Tobacco Use: No Smoking Status (MU): Never Smoked Tobacco Review of Systems Negative: Fever, Chills Negative: Erythema Negative: Sore Throat Negative: Chest Pain Negative: Shortness Of Breath, Cough Negative: Abdominal Pain, Vomiting, Nausea Positive: dysuria, hematuria, pain, other - Catheter leakage Negative: Myalgia, Edema Negative: Rash Neurological: Negative - Negative - dizziness All Other Systems Reviewed And Are Negative: Yes Physical Exam - Summary Physical Exam Summary: Constitutional: Well-developed, Well-nourished, Alert. (-) Distressed Skin: Warm, Dry HENT: Normocephalic; Atraumatic Eyes: Conjunctiva normal Neck: Musculoskeletal ROM normal neck. (-) JVD, (-) Stridor, (-) Tracheal deviation Cardio: Rhythm regular, rate normal, Heart sounds normal; Intact distal pulses; The pedal pulses are 2+ and symmetric. Radial pulses are 2+ and symmetric. (-) Murmur Pulmonary/Chest wall: Effort normal. (-) Respiratory distress, (-) Wheezes, (-) Rales Abd: Soft, (-) tenderness, No significant Distension, (-) Guarding, (-) Rebound Musculoskeletal: (-) Edema Lymph: (-) Cervical adenopathy Neuro: Alert, Oriented x3 Psych: Mood and affect Normal Triage Information Reviewed: Yes Vital Signs On Initial Exam: Initial Vitals Temp Pulse Resp BP Pulse Ox 97.8 F 76 19 132/81 97 01/07/19 11:37 01/07/19 11:37 01/07/19 11:37 01/07/19 11:37 01/07/19 11:37 Vital Signs Reviewed: Yes Procedures - Sedation Patient Received Moderate/Deep Sedation with Procedure: No Diagnostics - Vital Signs Vital Signs Temp Pulse Resp BP Pulse Ox 01/07/19 11:37 97.8 F 76 19 132/81 97 - Laboratory Lab Results: Lab Results 01/07/19 01/07/19 Range/Units 12:36 12:39 WBC 7.7 (3.5-10.8) 10^3/uL RBC 3.96 L (4.18-5.48) 10^6 /uL Hgb 12.8 L (14.0-18.0) g/dL Hct 37 L (42-52) % MCV 92 (80-94) fL MCH 32 H (27-31) pg MCHC 35 (31-36) g/dL RDW 15 (10-15) % Plt Count 343 (150-450) 10^3/uL MPV 7.6 (7.4-10.4) fL Sodium 137 (135-145) mmol/L Potassium 3.5 (3.5-5.0) mmol/L Chloride 102 (101-111) mmol/L Carbon Dioxide 28 (22-32) mmol/L Anion Gap 7 (2-11) mmol/L BUN 16 (6-24) mg/dL Creatinine 1.01 (0.67-1.17) mg/dL Est GFR ( Amer) 86.9 (>60) Est GFR (Non-Af Amer) 71.8 (>60) BUN/Creatinine Ratio 15.8 (8-20) Glucose 128 H (70-100) mg/dL Calcium 9.2 (8.6-10.3) mg/dL Total Bilirubin 0.70 (0.2-1.0) mg/dL AST 22 (13-39) U/L ALT 25 (7-52) U/L Alkaline Phosphatase 77 (34-104) U/L Total Protein 6.7 (6.4-8.9) g/dL Albumin 3.6 (3.2-5.2) g/dL Globulin 3.1 (2-4) g/dL Albumin/Globulin Ratio 1.2 (1-3) Result Diagrams: 01/07/19 12:39 01/07/19 12:36 Lab Statement: Any lab studies that have been ordered have been reviewed, and results considered in the medical decision making process. Re-Evaluation - Re-Evaluation First Eval Re-Evaluation Time: 13:08 Change: Improved Comment: Nurse Marisa irrigated page with 130ccs with improvement of blockage. GIGU Course/Dx - Course Course Of Treatment: 78 year old male presents to the ED with a chief complaint of burning dysuria secondary to Page catheter placement beginning this morning. The pain is rated an 8/10 in intensity. The catheter was inserted 3 days ago due to a urinary blockage. Apart from the pain, the patient is also experiencing leakage from the catheter and hematuria. Pt denies any fever, chills, erythema of eyes, sore throat, CP, SOB, cough, abdominal pain, N/V, myalgia, edema, rash, or dizziness. Patient has a recent PSHx of a cholecystectomy. PMHx of Parkinsons. Physical exam shows normal exam, no significant abdominal distention. Labs reveal RBCs of 3.96, hgb of 12.8, hct of 37, MCH of 32, glucose of 128. UA obtained and reveals 2+ blood, trace leukocyte esterase, and 3+ RBCs. Consulted Dr. Riojas at 1219. She recommends irrigating the catheter. Catheter irrigated by Marisa to trevin. Catheter is flowing normally. I encouraged the patient to drink fluids for the catheter to flow properly. He should follow up with his urologist on Thursday to remove the catheter. Diagnosis is an occluded page catheter. - Diagnoses Provider Diagnoses: Retention of urine due to occlusion of Page catheter - Physician Notifications Discussed Care Of Patient With: Jamee Riojas - general surgery Time Discussed With Above Provider: 12:19 Instructed by Provider To: Other - Dr. Riojas agrees with irrigating catheter. Discharge ED - Sign-Out/Discharge Documenting (check all that apply): Patient Departure - Discharge - Discharge Plan Condition: Stable Disposition: HOME Patient Education Materials: Page Catheter Placement and Care (ED) Referrals: [facility] [Outside] - If Needed Additional Instructions: Follow up with urologist on 01/10/19. RETURN TO THE EMERGENCY DEPARTMENT FOR CHANGING OR WORSENING SYMPTOMS. - Billing Disposition and Condition Condition: STABLE Disposition: Home - Attestation Statements Document Initiated by Alyssaibrylie: Yes Documenting Scribe: Phill Delgadillo Provider For Whom Shorty is Documenting (Include Credential): Iain Saldivar MD. Scribe Attestation: Phill Holland, scribed for Iain Saldivar MD. on 01/18/19 at 2265. Scribe Documentation Reviewed: Yes Provider Attestation: The documentation as recorded by the scribePhill accurately reflects the service I personally performed and the decisions made by me, Iain Saldivar MD. Status of Scribe Document: Viewed
[2019-01-07 14:28] LABS: Urine Appearance Clear; Urine Bacteria Absent (Absent); Urine Bilirubin Negative (Negative); Urine Blood 2+ (Negative); Urine Color Yellow; Urine Glucose Negative (Negative); Urine Ketones Negative (Negative); Urine Nitrite Negative (Negative); Urine Protein Negative (Negative); Urine Red Blood Cell 3+(>10/hpf) (Absent); Urine Specific Gravity 1.008 (1.010-1.030); Urine Urobilinogen Negative (Negative); Urine White Blood Cell Trace(0-5/hpf) (Absent)
[2019-01-07 14:32] VITALS: BP 151/88
== END 2019-01-07 14:30 | disposition home or self-care (01) ==
LOC: ED 11:30
DX: T83.83XA Hemorrhage due to genitourinary prosthetic devices, implants and grafts, initial encounter (principal); G20 Parkinson's disease; I10 Essential (primary) hypertension; K21.9 Gastro-esophageal reflux disease without esophagitis; N40.0 Benign prostatic hyperplasia without lower urinary tract symptoms; Z87.442 Personal history of urinary calculi; Z86.14 Personal history of Methicillin resistant Staphylococcus aureus infection; Y92.89 Other specified places as the place of occurrence of the external cause; Y84.6 Urinary catheterization as the cause of abnormal reaction of the patient, or of later complication, without mention of misadventure at the time of the procedure
CPT/HCPCS: 36415; 80053; 81003; 81015; 85027; 87086; 99283